=== PATIENT | female | born 1960 | race African-American/Black ===

== ENCOUNTER 2016-12-16 19:31 | Emergency (ER) | payer OTHER ==
[~2016-12-16] VITALS: Ht 172.7 cm; Wt 131.5 kg
[2016-12-16] MEDS ORDERED: NOHOMEMEDICATIONS (19:39)
[2016-12-16 20:46] LABS: ABSOLUTE NEUTROPHILS 5.6 thou/uL (1.4-8.2); BASOPHILS 0.6 % (0.0-2.0); EOSINOPHILS 2.3 % (0.0-3.0); HEMATOCRIT 36.1 % (37.0-47.0); HEMOGLOBIN 11.9 gm/dL (12.0-15.0); LYMPHOCYTES 22.2 % (24.0-44.0); MCH 27.1 pg (26.0-34.0); MCHC 32.9 g/dL (28.0-37.0); MCV 82.4 fL (80.0-100.0); MONOCYTES 7.3 % (1.0-8.0); PLATELET COUNT 230 thou/uL (150-400); POLYS 67.6 % (36.0-66.0); RBC 4.38 mil/uL (4.20-5.00); RDW 13.5 % (10.5-14.5); WBC 8.3 thou/uL (4.0-11.0)
[2016-12-16 20:47] LABS: MANUAL DIFF NO
[2016-12-16 20:48] LABS: CREATININE 0.8 mg/dL (0.6-1.0); POTASSIUM 3.9 mmol/L (3.5-5.1)
[2016-12-16 20:52] LABS: ALBUMIN 3.6 g/dL (3.4-5.0); TOTAL BILIRUBIN 0.2 mg/dL (<0.1-1.0); TOTAL PROTEIN 7.8 g/dL (6.4-8.2)
[2016-12-16 21:02] LABS: APTT 30.1 Seconds (24.5-32.8); INR 1.1; PROTIME 10.8 Seconds (9.3-11.4)
[2016-12-16 22:02] LABS: URINE BILIRUBIN NEGATIVE (Negative); URINE BLOOD TRACE (Negative); URINE COLOR YELLOW; URINE GLUCOSE-RANDOM* NEGATIVE (Negative); URINE KETONES NEGATIVE (Negative); URINE LEUKOCYTES-REFLEX NEGATIVE (Negative); URINE PROTEIN (DIPSTICK) NEGATIVE (Negative)
[2016-12-16] MEDS ORDERED: TRAMADOL 50 MG50 MG PO (23:33)
[2016-12-16] MEDS ORDERED: NAPROSYN500 MG PO (23:33)
[2016-12-17 00:50] VITALS: BP 132/76
== END 2016-12-17 00:45 | disposition home or self-care (01) ==
LOC: ER 19:31
PROVIDERS: Emergency Medicine
DX: D25.9 Leiomyoma of uterus, unspecified (principal); Z88.2 Allergy status to sulfonamides

== ENCOUNTER 2017-07-11 10:06 | Emergency (ER) | payer OTHER ==
[~2017-07-11] VITALS: Ht 180.3 cm; Wt 136.1 kg
[~2017-07-11 10:06] MED LIST: NAPROSYN500 MG PO; NOHOMEMEDICATIONS; TRAMADOL 50 MG50 MG PO
[2017-07-11 11:50] LABS: HEMATOCRIT 37.2 % (37.0-47.0); MCH 26.6 pg (26.0-34.0); MCHC 32.3 g/dL (28.0-37.0); MCV 82.4 fL (80.0-100.0); RBC 4.51 mil/uL (4.20-5.00); WBC 5.2 thou/uL (4.0-11.0)
[2017-07-11 12:00] LABS: ANION GAP 7 mmol/L (7-16); BUN 11 mg/dL (7-18); CALCIUM 8.9 mg/dL (8.5-10.1); CHLORIDE 105 mmol/L (98-107); CO2 27 mmol/L (21-32); CREATININE 0.7 mg/dL (0.6-1.0); GLUCOSE 113 mg/dL (74-106); SODIUM 139 mmol/L (136-145)
[2017-07-11 12:09] LABS: TROPONIN-I < 0.04 ng/mL (<0.06)
== END 2017-07-11 12:43 | disposition home or self-care (01) ==
LOC: ER 10:06
PROVIDERS: Emergency Medicine
DX: J00 Acute nasopharyngitis [common cold] (principal); Z88.2 Allergy status to sulfonamides